=== PATIENT | female | born 1980 | race Caucasian/White ===

== ENCOUNTER 2021-09-16 15:04 | Outpatient (CLI) | payer BC | END 2021-09-16 15:05 | disposition home or self-care (01) | LOC: CSHMAMMO 15:04 | PROVIDERS: ATTEND Family Medicine | DX: Z53.9 Procedure and treatment not carried out, unspecified reason (principal) ==

== ENCOUNTER 2023-01-01 10:35 | Outpatient (CLI) | payer BC ==
[2023-01-01] MEDS ORDERED: Iopamidol 300 61% 100 ML VIAL FS ONE (14:02)
== END 2023-01-01 10:36 | disposition home or self-care (01) ==
LOC: CSHCT 10:35
PROVIDERS: ATTEND Family Medicine
DX: R10.33 Periumbilical pain (principal)
CPT/HCPCS: 74177; Q9967